=== PATIENT | male | born 1975 ===

== ENCOUNTER 2016-12-27 11:54 | Inpatient (IN) ==
--- NOTE | 2016-12-27 13:46 | General Surg History&Physical ---
Assessment and Plan - Time spent with patient Time spent with patient: Less than 30 minutes (1) Cholecystitis, acute with cholelithiasis Status: Acute Assessment and plan: Clinically he appears to have acute cholecystitis. I am trying to locate his paperwork and diagnostic studies from [facility]. For now we will treat him with IV fluids and IV antibiotics. He is not acutely ill. I did discuss that optimally he will be treated with cholecystectomy once his diagnosis is confirmed. He was transferred through the emergency department but they went ahead and send him upstairs as a direct admit without evaluation since reportedly his diagnosis had already been established [facility]. Current Visit: Yes Qualifiers: Cholelithiasis location: gallbladder History of Present Illness Chief complaint: Abdominal pain History of present illness: Mr. Coelho is a 41 year old male Who 3 days ago had a sudden onset of epigastric and right upper quadrant abdominal pain radiating to his back. This pain was intermittent but has become more constant over the last 48 hours. It is described as severe and sharp and is worse with meals but now does not depend on meals. He has not had jaundice and he has not had fever. He was seen at the [facility] who contacted our emergency department and was sending him down hard emergency department Dr. Juan contacted me from the ER and asked if they could just go ahead and send him straight upstairs since it was clear that he had been diagnosed already with acute cholecystitis. He was not formally evaluated in our emergency department. Medical,Surgical,& Family Hx - Medical History Medical History: noncontributory - Surgical History Surgical History: noncontributory - Family History Family History: noncontributory - Social History Smoking Status: Current every day smoker Frequency of Alcohol Use: None Exam - Constitutional General appearance: no acute distress, morbidly obese - Head Head exam: Present: normocephalic - Eye Eye exam: Absent: scleral icterus - ENT Mouth exam: Present: normal voice - Neck Neck exam: Present: trachea midline - Respiratory Respiratory exam: Present: clear to auscultation bilaterally. Absent: accessory muscle use - Cardiovascular Cardiovascular exam: Present: RRR - GI/Abdominal GI/Abdominal exam: Present: tenderness, soft. Absent: distended, guarding, mass , Knox's sign, rebound - Back Exam Back exam: Present: normal inspection - Neurological Exam Neurological exam: Present: alert, oriented X3. Absent: motor sensory deficit Speech: Present: normal - Skin Skin exam: Present: normal color - Constitutional Constitutional: Present: anorexia. Absent: chills, fever(s) - EENT Nose, mouth and throat: Absent: dysphagia - Cardiovascular Cardiovascular: Absent: chest pain at rest, chest pain with activity, dyspnea, dyspnea on exertion, syncope - Respiratory Respiratory: Absent: cough, dyspnea, hemoptysis, dyspnea on exertion - Gastrointestinal Gastrointestinal: Present: abdominal pain, bloating, nausea, vomiting. Absent: hematemesis, hematochezia, jaundice - Genitourinary Genitourinary: Absent: hematuria - Musculoskeletal Musculoskeletal: Absent: back pain - Neurological Neurological: Absent: syncope
[2016-12-27] MEDS ORDERED: ONDANSETRON 4 MG/2 ML VIAL IV PRN (16:57)
[2016-12-27] MEDS: MORPHINE 2 MG/1 ML SYRINGE IV PRN ×2 (17:35→20:23)
[2016-12-27] MEDS: PIPERACILLIN/TAZOBACTAM 3,375 MG in SODIUM CHLORIDE 0.9% 100 ML IV SCH (17:35)
[2016-12-27] MEDS: DEXTROSE 5% NACL 0.45% 1,000 ML IV SCH (17:35)
[2016-12-28] MEDS: DEXTROSE 5% NACL 0.45% 1,000 ML IV SCH (00:16)
[2016-12-28] MEDS: PIPERACILLIN/TAZOBACTAM 3,375 MG in SODIUM CHLORIDE 0.9% 100 ML IV SCH ×3 (00:18→17:28)
[2016-12-28 06:29] LABS: Albumin 2.7 G/DL (3.4-5.0); Osmolality,Calculated 280.1 MOS/KG (273-304); Potassium 3.4 MMOL/L (3.5-5.1); Total Protein 5.9 G/DL (6.4-8.3)
[2016-12-28] MEDS: PANTOPRAZOLE 40 MG TABLET PO SCH (09:18)
[2016-12-28] MEDS ORDERED: LIDOCAINE 1%/EPI INJ 20 ML VIAL ONE ×2 (10:39→13:40)
[2016-12-28] MEDS ORDERED: BUPIVACAINE MPF 0.25% /EPI 30 ML VIAL ONE ×4 (10:39→15:07)
[2016-12-28] MEDS ORDERED: TISSUE ADHESIVE 1 EACH APPLICATOR TOP ONE ×2 (10:39→13:40)
[2016-12-28] MEDS ORDERED: KETOROLAC 30 MG/1 ML VIAL ONE (14:40)
[2016-12-28] MEDS ORDERED: ROCURONIUM 100 MG/10 ML VIAL IV ONE (14:40)
[2016-12-28] MEDS ORDERED: DEXAMETHASONE 4 MG/1 ML VIAL ONE (14:40)
[2016-12-28] MEDS ORDERED: NEOSTIGMINE 10 MG/10 ML VIAL ONE (14:40)
[2016-12-28] MEDS ORDERED: PROPOFOL 200 MG/20 ML VIAL IV ONE (14:40)
[2016-12-28] MEDS ORDERED: LIDOCAINE 1% 5 ML VIAL ONE (14:40)
[2016-12-28] MEDS ORDERED: GLYCOPYRROLATE 0.4 MG/2 ML VIAL ONE (14:40)
[2016-12-28] MEDS ORDERED: ONDANSETRON 4 MG/2 ML VIAL ONE (14:40)
[2016-12-28] MEDS ORDERED: MORPHINE 2 MG/1 ML SYRINGE IV PRN (16:12)
--- NOTE | 2016-12-28 16:12 | Operative Note ---
Date of procedure: 12/28/16 Pre-op diagnosis: Cholelithiasis with acute cholecystitis Post-op diagnosis: same Procedure: Laparoscopic converted to open cholecystectomy with cholangiogram Findings and technique: After informed consent was obtained the patient was brought the operating room and placed in supine position. After successful induction of general anesthesia the patient's abdomen was prepped and draped in usual sterile fashion. Local anesthesia was infiltrated and a transverse incision made at the umbilicus where an open technique was used to enter the peritoneal cavity under direct vision without difficulty. Thomason cannula was inserted and pneumoperitoneum was established. There was an inflammatory mass in the right upper quadrant. 5 mm ports were placed and after attempts at dissecting the omentum off of the undersurface of the liver and dissecting colon from the undersurface of the liver felt that it was unsafe to proceed laparoscopically. He was clear that the colon and duodenum were adherent to the gallbladder where there was intense inflammation and gangrenous change. A right upper quadrant incision was made incorporating the right upper quadrant port sites and the peritoneal cavity entered. I dissected the omentum off of the necrotic gallbladder with a with gangrene and perforation of the free wall of the gallbladder that had been walled off by: And omentum. Colon was dissected free carefully and no evidence of necrosis or infection of the colon was noted. There was intense inflammation and I was able to get the duodenum free but the region of the hepatoduodenal ligament was densely inflamed and I did not feel that it was safe to dissect out all of the gallbladder neck. I then opened the gallbladder and dissected away the front wall of the gallbladder leaving a portion of the back wall attached to the liver. As I dissected down into the neck I stayed within the gallbladder to avoid any chance of injury to structures in the hepatoduodenal ligament. Cystic artery branches in the wall of the gallbladder were oversewn with silk suture and I then attempted to shoot a cholangiogram through the orifice of the cystic duct but this appeared to be occluded. The pursestring suture and placed from the inside of the gallbladder I attempted to get contrast into the common bile duct but this did not occur. There appeared to be obstruction of the cystic duct but I could not palpate a stone at this location. All stones were removed. I then oversewed the orifice with PDS suture to prevent any chance of back filling of bile leakage. I then placed a 10 mm LILIANE drain in the subhepatic space and brought this out through separate stab incision laterally. The bed of dissection was irrigated and good hemostasis was noted and this was inspected and no bleeding or bile leakage noted. The fascial layers were closed with running 0 PDS suture and sponge and instrument counts were correct at the time of closure. Skin was closed with skin clips. He appeared to tolerate the procedure well but this was a much more difficult procedure than usual. The intense inflammation and apparent colon and duodenum and intense inflammation of the gallbladder neck greatly added to the complexity of the case and the difficulty. These factors essentially doubled the expected operative time but he appeared to tolerate the procedure well and had no apparent complications. Anesthesia: GETA, local Surgeon / Physician: Dexter Blanco III. Estimated blood loss: other (50 mL) Specimens: other (Gallbladder and gallstones) Condition: stable Disposition: PACU Results - Labs CBC & BMP: 12/28/16 04:32 Discharge Plan - Discharge Medications No Action Lisinopril 20 mg PO DAILY - Follow Up or Referral - Forms/Instructions
--- NOTE | 2016-12-28 16:21 | Anesthesia Post-Op ---
Anesthesia Post OP - Post Ansesthetic Evaluation Patient seen in post op: Yes Resp: within normal limits CV: within normal limits Mental: within normal limits Temp: within normal limits [id number]: within normal limits Nausea and Vomiting: within normal limits Pain: within normal limits
[2016-12-28] MEDS ORDERED: MIDAZOLAM 2 MG/2 ML VIAL ONE (16:22)
[2016-12-28] MEDS ORDERED: fentaNYL 100 MCG/2 ML VIAL ONE (16:22)
[2016-12-28] MEDS ORDERED: SEVOFLURANE 1 UNIT/15 MINUTE INH ONE (16:22)
[2016-12-28] MEDS ORDERED: LACTATED RINGERS 1,000 ML IV ONE (16:22)
[2016-12-28 17:13] LABS: Hematocrit 33.2 VOL% (42.0-52.0); Hemoglobin 11.1 GM/DL (14.0-18.0)
[2016-12-29] MEDS: PIPERACILLIN/TAZOBACTAM 3,375 MG in SODIUM CHLORIDE 0.9% 100 ML IV SCH ×3 (00:42→18:17)
[2016-12-29 01:30] LABS: Basophils % 0.2 % (0.0-0.8); Hematocrit 32.9 VOL% (42.0-52.0); Hemoglobin 11.1 GM/DL (14.0-18.0); Immature Granulocytes % 0.5 %; Immature Granulocytes Absolute 0.03 #; Lymphocytes # 0.5 10*3/uL (1.4-4.0); Lymphocytes % 7.1 % (21.2-54.2); Mean Corpuscular HGB Conc 33.7 GM/DL (32-36); Mean Corpuscular Hemoglobin 33 PG (27-34); Mean Corpuscular Volume 97.9 FL (87-102); Mean Platelet Volume 9.2 FL (9.6-12.0); Monocytes # 0.5 10*3/uL (0.11-0.8); Monocytes % 8.1 % (1.7-12.7); Neutrophils # 5.5 10*3/uL (1.4-7.4); Neutrophils % 84.1 % (38.7-73.9); Platelet Count 159 T/CUMM (130-400); Red Blood Count 3.36 MC/CUMM (3.8-5.5); Red Cell Distribution Width 12.3 % (9.3-17.3); White Blood Count 6.6 T/CUMM (4-12)
[2016-12-29 01:55] LABS: Albumin 2.6 G/DL (3.4-5.0); Bilirubin,Total 0.6 MG/DL (0.2-1.0); Calcium 7.9 MG/DL (8.5-10.1); Osmolality,Calculated 279.3 MOS/KG (273-304); Potassium 3.7 MMOL/L (3.5-5.1); Total Protein 5.8 G/DL (6.4-8.3)
[2016-12-29] MEDS: MORPHINE 2 MG/1 ML SYRINGE IV PRN (02:38)
[2016-12-29] MEDS: DEXTROSE 5% NACL 0.45% 1,000 ML IV SCH ×3 (06:35→20:51)
[2016-12-29 09:19] LABS: Hematocrit 34.2 VOL% (42.0-52.0); Hemoglobin 11.8 GM/DL (14.0-18.0)
[2016-12-29] MEDS: LISINOPRIL 20 MG TABLET PO SCH (10:18)
[2016-12-29] MEDS: PANTOPRAZOLE 40 MG TABLET PO SCH (10:18)
--- NOTE | 2016-12-29 12:34 | Event Note ---
He feels well. His pain is controlled. He has stable vital signs and is at abdomen is nontender. He is afebrile. His lab work looks okay and his liver function tests are normal there is no bile and his LILIANE drain.
[2016-12-29] MEDS ORDERED: ENOXAPARIN 40 MG/0.4 ML SYRINGE SUBCUT SCH (13:00)
[2016-12-30] MEDS: PIPERACILLIN/TAZOBACTAM 3,375 MG in SODIUM CHLORIDE 0.9% 100 ML IV SCH ×2 (00:49→09:23)
[2016-12-30] MEDS: DEXTROSE 5% NACL 0.45% 1,000 ML IV SCH (07:27)
[2016-12-30] MEDS: PANTOPRAZOLE 40 MG TABLET PO SCH (09:22)
[2016-12-30] MEDS: LISINOPRIL 20 MG TABLET PO SCH (09:23)
--- NOTE | 2016-12-30 09:50 | Discharge Summary ---
Hospital Course - Hospital Course Hospital Course: Patient is a 41-year-old male presented with cholecystitis and underwent laparoscopic cholecystectomy which was converted to open cholecystectomy with gangrenous gallbladder. Pathology was sent and reviewed revealing acute and chronic cholecystitis without evidence of malignancy. Postoperatively, the patient's pain was controlled adequately and he ultimately weaned to oral pain medications. He advance his diet and was tolerating oral intake without difficulty as well as voiding without difficulty. His passing flatus at the time of discharge. No complications to note. Patient follow with Dr. Blanco in 1-2 weeks. Diagnosis - Discharge Diagnosis (1) Nicotine dependence Status: Acute (2) Cholecystitis, acute with cholelithiasis Status: Acute Specialty Discharge - Follow Up or Referrals Follow up with: Dexter Blanco III., MD [Physician] - 01/11/17 9:30 am Discharge Plan - Discharge Data Disposition: Disch To Home/Self Care Condition at Discharge: Stable Discharge Diet: advance to your usual diet Activity: no lifting (No lifting> 5lb. No rigorous activity. ) Hygiene: may shower (No soaking or submerging wound. Pat dry. Keep incisions clean, dry and covered. ) Driving: not until seen by doctor Contact your physician if you experience:: fever over 101, Difficulty voiding, Redness or swelling, Nausea/Vomiting, Shortness of breath, Bleeding, pain uncontrolled by pain medications Wound / Dressing Care Instructions: Keep incisions clean, dry and covered. - Discharge Medications New Tramadol HCl [Tramadol Tab] 50 mg PO Q6H PRN #30 tablet PRN Reason: Pain Moderate To Severe (4-10) Continue Lisinopril 20 mg PO DAILY - Follow Up or Referral Follow Up: Dexter Blanco III., MD [Physician] - 01/11/17 9:30 am - Forms/Instructions Instructions: How to Stop Smoking (DC), Open Cholecystectomy (DC) Exam - Constitutional Vitals: Period Temp Pulse Resp BP Sys/Caldwell Pulse Ox Last 24 Hr 97.8 F-99.1 F 70-82 16-20 120-153/75-91 99-100 General appearance: no acute distress - Head Head exam: Present: normocephalic - Eye Eye exam: Absent: conjunctival injection, scleral icterus - Respiratory Respiratory exam: Present: clear to auscultation bilaterally - Cardiovascular Cardiovascular exam: Present: regular rate and rhythm - GI/Abdominal GI/Abdominal exam: Present: normal bowel sounds, tenderness (appropriate p/o tenderness; dressings c/d/i), soft. Absent: distended, firm, guarding, rebound - Extremities Exam Extremities exam: Absent: calf tenderness, edema - Neurological Exam Neurological exam: Present: alert, oriented X3 - Psychiatric Psychiatric exam: Present: normal affect, normal mood - Skin Skin exam: Present: normal color, warm Discharge Results Procedures and tests throughout hospitalization: 1. Laparoscopic converted to open cholecystectomy with intraoperative cholangiogram 2. Pathology: Gallbladder revealed acute on chronic cholecystitis; no evidence of malignancy DS: Provider Date of admission: 12/27/16 12:49 Primary care physician: Maryam Sanz MD Attending physician on admission: Dexter Blanco III., Consults: 12/27/16 14:55 Consult to Dietitian [CONS] Routine Reason for Dietitian: Dietary Consult Consult to Pastoral Services [CONS] Routine Comment: Pastoral Screen: Request Remote Medical Coder Visit Pastoral Screen Source of Request: Patient Discharging clinician: Emi Farmer PA-C
--- NOTE | 2016-12-30 10:42 | Event Note ---
He feels well. He has minimal pain. He is tolerating a diet and his abdomen is benign. There is no bile in his LILIANE. We will pull his drain today and discharge home. He can follow-up to see me in the next week or so and call if there are any problems in the meantime.
[2016-12-30 11:36] VITALS: BP 141/88
--- NOTE | 2016-12-30 12:16 | Pathology Report from [facility] ---
[facility] ACCESSION # : [id number] PATIENT NAME : Dawson Thompson ORDERING DR : JAK FLETCHER III, MD CLINICAL HX: Acute cholecystitis with cholelithiasis POST-OP DX: Same SPECIMEN INFO: Gallbladder GROSS DESCRIPTION: Received in formalin labeled DAWSON THOMPSON is an open gallbladder measuring 7.6 x 2.8 cm. The serosa is ulcerated and hemorrhagic. The gallbladder wall has a thickness of up to 0.3 cm. The mucosa is trabeculated gold with focal hemorrhage and ulceration present. No stones are identified. Senior Civil Engineer sections are submitted in one cassette. DIAGNOSIS FOR DAWSON THOMPSON: GALLBLADDER: Acute and chronic cholecystitis. No evidence of malignancy. COLLECTED DATE: 12/29/2016 [facility] REPORT DATE: 12/30/2016 ELECTRONICALLY SIGNED BY: Em Sarmiento III, M.D. 12/30/2016 - 10:22:48 [id number]
== END 2016-12-30 12:20 | disposition home or self-care (01) | DRG 416 ==
LOC: N.3E 12:49
PROVIDERS: ADMIT Surgery; ATTEND Surgery
PROC: LAPCHOL (2016-12-28 14:40)